=== PATIENT | female | born 1970 | race Caucasian/White ===

== ENCOUNTER 2018-03-31 10:22 | Emergency (ER) | payer OTHER ==
--- OUTSIDE RECORDS SUMMARY | 2018-03-31 10:25 | XMS REPORT | Clinical Summary ---
:1970 Author Organization [facility] Address [address] [place] [address] Care Team Providers Name Role Phone Sina Matthew MD Primary Care Provider Allergies Active Allergy Reactions Severity Noted Date Comments No Known Drug Allergies 12/13/2015 Current Medications Prescription Sig. Disp. Refills Start End Date Status Date oxyCODone-acetaminophen Take 1 tablet Active (PERCOCET) 10-325 mg by mouth 4 per tablet (four) times a day. tiZANidine (ZANAFLEX) 4 Take 1 tablet Active MG tablet by mouth 4 (four) times a day. gabapentin (NEURONTIN) Take 300 mg by Active 300 mg capsule mouth 3 (three) times a day. predniSONE (DELTASONE) Take 1 tablet Active 5 mg tablet by mouth daily. predniSONE (DELTASONE) Take 1 mg by Active 1 mg tablet mouth daily. hydroxychloroquine Take 200 mg by Active (PLAQUENIL) 200 mg mouth 2 (two) tablet times a day. fentaNYL (DURAGESIC) 50 1 patch. Active mcg/hr albuterol (PROAIR Inhale 2 puffs Active HFA,PROVENTIL every 6 (six) HFA,VENTOLIN HFA) 90 hours as mcg/actuation inhaler needed for wheezing. SUMAtriptan (IMITREX) Take 1 tablet Active 25 MG tablet by mouth as needed. fluocinonide (LIDEX) Apply Active 0.05 % cream topically 2 (two) times a day. escitalopram (LEXAPRO) Take 20 mg by Active 20 MG tablet mouth daily. pantoprazole (PROTONIX) Take 1 tablet Active 40 MG EC tablet by mouth daily. amitriptyline (ELAVIL) Take 2 tablets Active 100 MG tablet by mouth nightly - one time. citalopram (CeleXA) 40 Take 1 tablet Active MG tablet by mouth daily. esomeprazole (NexIUM) Take 20 mg by Active 20 MG capsule mouth daily before breakfast. folic acid (FOLVITE) 1 Take 1 mg by Active MG tablet mouth daily. clonAZEPAM (KlonoPIN) 1 Take 1 tablet Active MG tablet by mouth daily. fluticasone-salmeterol Inhale 1 puff Active (ADVAIR) 250-50 2 (two) times mcg/dose DISKUS a day. mycophenolate Take 1,000 mg Active (CELLCEPT) 500 mg by mouth tablet daily. SYNTHROID 125 mcg Take 1 tab by 90 tablet 3 Active tabletIndications: mouth daily 8 Papillary thyroid carcinoma SYNTHROID 125 mcg Take 1 tablet 96 tablet 3 10/07/19 Discontinued tabletIndications: (125 mcg 7 18 Malignant neoplasm of total) by thyroid gland mouth daily. Take 1 tab Mon - Sat Take 2 tabs Sun SYNTHROID 125 mcg Take 1 tablet 34 tablet 0 10/10/19 Discontinued tabletIndications: (125 mcg 8 18 Papillary thyroid total) by carcinoma mouth daily. Take 1 tab Mon - Sat Take 2 tabs Sun Active Problems Problem Noted Date Papillary thyroid carcinoma 10/09/2016 Last Assessment & Plan: Ann has no evidence of residual thyroid cancer. This is based on a negative neck exam, and negative neck ultrasound, and an undetectable serum thyroglobulin. She was advised to call before her next visit if she develop any lumps pain or swelling in her neck. Her next surveillance visit will be in 1 year. All of her questions were answered. Postoperative hypothyroidism 10/09/2016 Last Assessment & Plan: Ann is clinically and biochemically euthyroid. She currently takes Synthroid 125 mcg tablets 8 pills each week. She has no symptoms of hyperthyroidism at this time. Because of the lack of evidence of thyroid cancer, I recommend that she reduce to 125 mcg/day. I will give her 1 years worth of refills. I have asked her to call in the meantime should she develop any palpitations tremor or excessive sweating. Encounters Date Type Specialty Care Team Description 10/09/2017 Office Visit Endocrinology Sina Matthew Papillary thyroid carcinoma (Primary Dx); MD David Postoperative hypothyroidism 10/06/2017 Orders Only Endocrinology Jason Yusuf, Papillary thyroid carcinoma (Primary Dx); SOFI Love Malignant neoplasm of thyroid gland 09/29/2017 Hospital Encounter Radiology Sina Matthew MD carcinoma 09/17/2017 Orders Only Endocrinology Jaosn Yusuf, Papillary thyroid SOFI Love carcinoma (Primary Dx) 08/28/2017 Orders Only Endocrinology Jason Yusuf Papillary thyroid SOFI Love carcinoma (Primary Dx) after 03/30/2017 Family History Medical History Relation Name Comments Graves' disease Brother Other Father abestosis, mesothelioma Relation Name Status Comments Brother Father Social History Tobacco Use Types Packs/Day Years Used Date Former Smoker Quit: 09/11/2016 Smokeless Tobacco: Never Used Alcohol Use Drinks/Week oz/Week Comments No Sex Assigned at Date Recorded Not on file Last Filed Vital Signs Vital Sign Reading Time Taken Blood Pressure 115/80 10/09/2017 10:08 AM CDT Pulse 82 10/09/2017 10:08 AM CDT Temperature 36.7 C (98.1 F) 10/09/2017 10:08 AM CDT Respiratory Rate - - Oxygen Saturation 100% 10/09/2017 10:08 AM CDT Inhaled Oxygen Concentration - - Weight 76.2 kg (168 lb) 10/09/2017 10:08 AM CDT Height 160 cm (5' 3") 10/09/2017 10:08 AM CDT Body Mass Index 29.76 10/09/2017 10:08 AM CDT Plan of Treatment Date Type Specialty Care Team Description 10/08/2018 Office Visit Endocrinology Sina Matthew MD [address] [address] [place] [address] Health Maintenance Due Date Last Done Comments CERVICAL CANCER SCREENING 1989 INFLUENZA VACCINE 02/11/2018 BREAST CANCER SCREENING 2018 COLON CANCER SCREENING 2018 SHINGRIX VACCINE (#1) 2018 Procedures Procedure Name Priority Date/Time Associated Comments Diagnosis US SOFT TISSUE HEAD Routine 09/29/2017 2:15 Papillary thyroid Results for this NECK PM CDT carcinoma procedure are in the results section. THYROGLOBULIN BY JONATHAN Routine 09/17/2017 11:33 Results for this (NOT ORDERABLE) AM ELECTRONICS 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 THYROGLOBULIN ANTIBODY Routine 09/17/2017 11:33 Papillary thyroid Results for this AND THYROGLOBULIN, WIL AM ELECTRONICS ENGINEER carcinoma procedure are in OR JONATHAN the results section. THYROID STIMULATING Routine 09/17/2017 11:33 Papillary thyroid Results for this HORMONE AM ELECTRONICS ENGINEER carcinoma procedure are in the results section. T4, FREE Routine 09/17/2017 11:33 Papillary thyroid Results for this AM ELECTRONICS ENGINEER carcinoma procedure are in the results section. after 03/30/2017 Results US Soft Tissue Head Neck (09/29/2017 2:15 PM) Narrative Performed At EXAMINATION:[facility] CLINICAL HISTORY:C73 Malignant neoplasm of thyroid gland COMPARISON: October 04, 2016 ultrasound of the neck TECHNIQUE:Grayscale, color Doppler, and spectral waveform analysis if necessary was performed. IMPRESSION: Patient is status-post thyroidectomy. No residual thyroid tissue is identified. No mass, lymphadenopathy, or fluid collection identified in the anterior neck soft tissues. Thank you for allowing us to participate in the care of your patient. [facility]-[id number] Procedure Note Hm Interface, Radiology Results Incoming - 09/29/2017 2:53 PM CDT EXAMINATION: US SOFT TISSUE HEAD NECK CLINICAL HISTORY: C73 Malignant neoplasm of thyroid gland COMPARISON: October 04, 2016 ultrasound of the neck TECHNIQUE: Grayscale, color Doppler, and spectral waveform analysis if necessary was performed. IMPRESSION: Patient is status-post thyroidectomy. No residual thyroid tissue is identified. No mass, lymphadenopathy, or fluid collection identified in the anterior neck soft tissues. Thank you for allowing us to participate in the care of your patient. [facility]-[id number] Performing Organization Address City/[facility] Phone Number [facility] [address] [place] [address] Thyroglobulin by JONATHAN (09/17/2017 11:33 AM) Thyroglobulin <2.0 ng/mL [facility] 02 Comment: Reference Range: Pubertal Children and Adults: <40 According to the National Academy of Clinical Biochemistry, the reference interval for Thyroglobulin (TG) should be related to euthyroid patients and not for patients who underwent thyroidectomy.TG reference intervals for these patients depend on the residual mass of the thyroid tissue left after surgery.Establishing a post-operative baseline is recommended.The assay quantitation limit is 2.0 ng/mL. Narrative Performed At Performed at:02 - [facility] [address] [place], [place] [id number] Health Club Manager: Pee Tracey MD, Phone:[phone] Performing Organization Address City/State/[facility] Phone Number [facility] 02 Thyroglobulin Antibody and Thyroglobulin, WIL or JONATHAN (09/17/2017 11:33 AM) Thyroglobulin Ab 1.6 (H)Comment: Thyroglobulin Antibody 0.0 - 0.9 IU/mL [facility] measured by Corbin Wood Methodology Specimen Blood Narrative Performed At Performed at:[address] [place] [address] [id number] Health Club Manager: Sandro Murray MD, Phone:[phone] Performing Organization Address [facility] Phone Number [facility] Thyroid stimulating hormone (09/17/2017 11:33 AM) TSH <0.006 (L) 0.450 - 4.500 uIU/mL [facility] Specimen Blood Narrative Performed At Performed at:[address] [place] [address] [id number] Health Club Manager: Sandro Murray MD, Phone:[phone] Performing Organization Address [facility] Phone Number [facility] T4, free (09/17/2017 11:33 AM) T4, free 1.41 0.82 - 1.77 ng/dL [facility] Specimen Blood Narrative Performed At Performed at:[address] [place] [address] [id number] Health Club Manager: Sandro Murray MD, Phone:[phone] Performing Organization Address [facility] Phone Number [facility] after 03/30/2017 Insurance Payer Benefit Plan / Group Subscriber ID Type Phone Address MEDICARE MEDICARE PART A AND B xxxxxxxxxx Medicare [place], [place] MEDICAID MEDICAID xxxxxxxxx Medicaid [phone] [place] [address]
[2018-03-31] MEDS ORDERED: LIDOCAINE 1% MPF 5 ML VIAL ONE (11:19)
--- NOTE | 2018-03-31 11:32 | EDPHYS ---
Physician Documentation [facility] Name: Ann Joaquin Age: 48 yrs Sex: Female : 1970 Arrival Date: 03/31/2018 Time: 10:23 Bed 7 Private MD: ALMA VILLAGOMEZ ED Physician Jaret Vaca HPI: 03/31 11:25 This 48 yrs old Female presents to ER via Ambulatory with complaints of jr8 Pelvic Problem. 11:25 The patient presents with an abscess of the pelvis, the patient presents with a swollen jr8 area of the pelvis. Description: The affected area is moderate sized, draining, erythematous, swollen, tense. Onset: The symptoms/episode began/occurred gradually, 2 day(s) ago. Possible cause(s): unknown. Associated signs and symptoms: The patient has no apparent associated signs or symptoms. Modifying factors: the symptoms are alleviated by nothing, the symptoms are aggravated by movement, walking, pressure, sitting, squeezing the lesion and expressing the contents, touching. Severity of symptoms: At their worst the symptoms were moderate, in the emergency department the symptoms have improved. The patient has not experienced similar symptoms in the past. The patient has not recently seen a physician. Stated that she noticed swollen area around her right labia that was getting worse. This morning work up in a pool of blood. 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 - Social history:: Smoking status: Patient/guardian denies using tobacco. - Ebola Screening: : No symptoms or risks identified at this time. ROS: 11:25 Eyes: Negative for injury, pain, redness, and discharge, ENT: Negative for injury, jr8 pain, and discharge, Neck: Negative for injury, pain, and swelling, Cardiovascular: Negative for chest pain, palpitations, and edema, Respiratory: Negative for shortness of breath, cough, wheezing, and pleuritic chest pain, Abdomen/GI: Negative for abdominal pain, nausea, vomiting, diarrhea, and constipation, Back: Negative for injury and pain, MS/Extremity: Negative for injury and deformity, Neuro: Negative for headache, weakness, numbness, tingling, and seizure. 11:25 Skin: Positive for abscess, cellulitis. Exam: 11:25 Cardiovascular: Regular rate and rhythm with a normal S1 and S2. No gallops, murmurs, jr8 or rubs. Normal PMI, no JVD. No pulse deficits. Respiratory: Lungs have equal breath sounds bilaterally, clear to auscultation and percussion. No rales, rhonchi or wheezes noted. No increased work of breathing, no retractions or nasal flaring. Abdomen/GI: Soft, non-tender, with normal bowel sounds. No distension or tympany. No guarding or rebound. No evidence of tenderness throughout. Back: No spinal tenderness. No costovertebral tenderness. Full range of motion. MS/ Extremity: Pulses equal, no cyanosis. Neurovascular intact. Full, normal range of motion. Neuro: Awake and alert, GCS 15, oriented to person, place, time, and situation. Cranial nerves II-XII grossly intact. Motor strength 5/5 in all extremities. Sensory grossly intact. Cerebellar exam normal. Normal gait. 11:25 Skin: abscess noted to right inferior aspect of labia near where buttocks starts. Erythema and induration extends from lower gluteal cleft into right external labia. Actively draining . Vital Signs: 10:32 BP 120 / 84; Pulse 90; Resp 18; Temp 97.4; Pulse Ox 100% ; Weight 72.57 kg; Height 5 sv ft. 3 in. (160.02 cm); Pain 6/10; 10:32 Body Mass Index 28.34 (72.57 kg, 160.02 cm) sv Procedures: 11:25 I \T\ D: Incision and drainage was performed for an abscess of the right external labia jr8 Prepped with Betadine, Anesthetized with 2 ml's 1% Lidocaine. Incised with #11 blade. Drained small amount purulent fluid. serosanguinous fluid. Loculations removed. Cultures obtained. Abscess cavity explored. Packed with sterile gauze, Dressing: sterile 4x4 gauze, the patient tolerated the procedure well. MDM: 10:36 Patient medically screened. jr8 11:30 Data reviewed: vital signs, nurses notes, lab test result(s), and as a result, I will jr8 discharge patient. Data interpreted: Pulse oximetry: on room air is 100 %. Interpretation: normal. Counseling: I had a detailed discussion with the patient and/or guardian regarding: the historical points, exam findings, and any diagnostic results supporting the discharge/admit diagnosis, lab results, the need for outpatient follow up, a family practitioner, to return to the emergency department if symptoms worsen or persist or if there are any questions or concerns that arise at home. 11:30 ED course: return precautions given including s/s of worsening infection. To f/u in 48 jr8 hours for packing removal and to see how abscess is doing. Patient good with this and will follow up or come back if worse . 03/31 11:29 Order name: Wound Culture ss Administered Medications: 11:54 Drug: Clindamycin 600 mg {Note: left ventrogluteal .} Route: IM; Site: Other; 11:55 Drug: Bactrim (160 mg-800 mg (DS) 1 tablet Route: PO; sg Disposition: 13:40 Co-signature as Attending Physician, Jaret Vaca MD. rn Disposition: 03/31/18 11:31 Discharged to Home. Impression: Cutaneous abscess of buttock. - Condition is Stable. - Discharge Instructions: Skin Abscess, Incision and Drainage. - Prescriptions for Clindamycin HCl 300 mg Oral Capsule - take 1 capsule by ORAL route every 6 hours for 10 days; 40 capsule. Bactrim DS 800- 160 mg Oral Tablet - take 1 tablet by ORAL route every 12 hours for 10 days; 20 tablet. - Medication Reconciliation Form, Thank You Letter, Antibiotic Education, Prescription Opioid Use form. - Follow up: Private Physician; When: 48 Hours; Reason: Recheck today's complaints, Continuance of care, Re-evaluation by your physician. - Problem is new. - Symptoms have improved. Signatures: Dispatcher MedHo Jyoti Elizabeth RN RN sv Gay, Steven, RN RN Jaret Vaca MD MD rn Roszak, Josh, PA PA jr8 Rupal Silva RN RN Corrections: (The following items were deleted from the chart) 12:02 11:31 03/31/2018 11:31 Discharged to Home. Impression: Cutaneous abscess of buttock. hb Condition is Stable. Forms are Medication Reconciliation Form, Thank You Letter, Antibiotic Education, Prescription Opioid Use. Follow up: Private Physician; When: 48 Hours; Reason: Recheck today's complaints, Continuance of care, Re-evaluation by your physician. Problem is new. Symptoms have improved. jr8
--- NOTE | 2018-03-31 11:32 | ER ---
Nurse's Notes [facility] Name: Ann Joaquin Age: 48 yrs Sex: Female : 1970 Arrival Date: 03/31/2018 Time: 10:23 Bed 7 Private MD: ALMA VILLAGOMEZ Diagnosis: Cutaneous abscess of buttock Presentation: 03/31 10:29 Presenting complaint: Patient states: vaginal bleeding since 0500. c/o RLQ pain and RLQ sv swelling. Transition of care: patient was not received from another setting of care. Onset of symptoms was March 31, 2018 at 05:00. Care prior to arrival: None. 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 - Social history:: Smoking status: Patient/guardian denies using tobacco. - Ebola Screening: : No symptoms or risks identified at this time. Vital Signs: 10:32 BP 120 / 84; Pulse 90; Resp 18; Temp 97.4; Pulse Ox 100% ; Weight 72.57 kg; Height 5 sv ft. 3 in. (160.02 cm); Pain 6/10; 10:32 Body Mass Index 28.34 (72.57 kg, 160.02 cm) sv ED Course: 10:23 Patient arrived in ED. sb2 10:24 ALMA VILLAGOMEZ is Private Physician. sb2 10:30 Triage completed. sv 10:32 Arm band placed on right wrist. sv 10:36 Javy Kasper PA is PHCP. jr8 10:36 Jaret Vaca MD is Attending Physician. jr8 11:40 Rupal Silva, SOFI is Primary Nurse. hb Administered Medications: 11:54 Drug: Clindamycin 600 mg {Note: left ventrogluteal .} Route: IM; Site: Other; sg 11:55 Drug: Bactrim (160 mg-800 mg (DS) 1 tablet Route: PO; sg Outcome: 11:31 Discharge ordered by MD. mason 12:00 Discharged to home ambulatory, with family. 12:00 Condition: good 12:00 Discharge instructions given to patient, Instructed on discharge instructions, follow up and referral plans. medication usage, safety practices, wound care, Demonstrated understanding of instructions, follow-up care, medications, wound care, Prescriptions given X 2. 12:02 Patient left the ED. hb Signatures: Jyoti Landeros RN RN Monty Hernandez RN RN Javy Kasper PA PA jr8 Rupal Silva RN RN Rupinder Cordero sb2 Corrections: (The following items were deleted from the chart) 10:31 10:29 Presenting complaint: Patient states: vaginal bleeding since 0500. c/o RLQ pain. [facility]
[2018-03-31] MEDS ORDERED: SMZ./TMP. 800/160 MG TABLET ONE (11:51)
[2018-03-31] MEDS ORDERED: CLINDAMYCIN IV 150 MG/ML (4 mL) VIAL ONE (11:53)
[2018-03-31 12:17] VITALS: BP 120/84; TEMP 97.4; O2SAT 100
== END 2018-03-31 12:02 | disposition home or self-care (01) ==
LOC: ER 10:22
PROC: 0U9MXZZ Drainage of Vulva, External Approach (ICD-10-PCS; principal; 2018-03-31)
DX: N76.4 Abscess of vulva (principal); Z85.850 Personal history of malignant neoplasm of thyroid
CPT/HCPCS: 56405; 87070; 87205; 96372; 99283; S0077

== ENCOUNTER 2018-04-09 11:35 | Emergency (ER) | payer OTHER ==
--- OUTSIDE RECORDS SUMMARY | 2018-04-09 11:41 | XMS REPORT | Clinical Summary ---
:1970 Author Organization [facility] Address [address] [place] [address] Care Team Providers Name Role Phone Sina [...] Matthew MD carcinoma 09/17/2017 Orders Only Endocrinology Jason Yusuf, Papillary thyroid SOFI Love carcinoma (Primary Dx) 08/28/2017 Orders Only Endocrinology Jason Yusuf Papillary thyroid SOFI Love carcinoma (Primary Dx) after 04/08/2017 Family History Medical History Relation Name Comments [...] 10/08/2018 Office Visit Endocrinology Sina Matthew MD [address] [facility] [address] [place] [address] Health Maintenance Due Date Last Done [...] 11:33 Results for this (NOT ORDERABLE) AM GEOTHERMAL OPERATING 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 THYROGLOBULIN ANTIBODY Routine 09/17/2017 11:33 Papillary thyroid Results for this AND THYROGLOBULIN, WIL AM GEOTHERMAL OPERATING ENGINEER carcinoma procedure are in OR JONATHAN the results section. THYROID STIMULATING Routine 09/17/2017 11:33 Papillary thyroid Results for this HORMONE AM GEOTHERMAL OPERATING ENGINEER carcinoma procedure are in the results section. T4, FREE Routine 09/17/2017 11:33 Papillary thyroid Results for this AM GEOTHERMAL OPERATING ENGINEER carcinoma procedure are in the results section. after 04/08/2017 Results US Soft Tissue Head Neck (09/29/2017 2:15 PM) Narrative Performed At EXAMINATION:[facility] CLINICAL H[facility]ORY:C73 Malignant neoplasm of thyroid [...] participate in the care of your patient. [facility]-[id number] Procedure Note Hm Interface, Radiology Results Incoming [...] participate in the care of your patient. [facility]-[id number] Performing Organization Address City/[facility] Phone Number [facility] [address] [place] [address] Thyroglobulin by JONATHAN (09/17/2017 11:33 AM) Thyroglobulin [...] At Performed at:02 - [facility] [address] [place], [place] [id number] Title Vehicle Service Attendant: Pee Tracey MD, Phone:[phone] Performing Organization Address City/State/[facility] Phone Number [facility] 02 Thyroglobulin Antibody and Thyroglobulin, WIL or JONATHAN (09/17/2017 11:33 AM) Thyroglobulin Ab 1.6 (H)Comment: Thyroglobulin Antibody 0.0 - 0.9 IU/mL [facility] measured by Corbin [place] Methodology Specimen Blood Narrative Performed At Performed at:[address] [place] [id number] Title Vehicle Service Attendant: Sandro Murray MD, Phone:[phone] Performing Organization Address [facility] Phone Number [facility] Thyroid stimulating hormone (09/17/2017 11:33 AM) TSH <0.006 (L) 0.450 - 4.500 uIU/mL [facility] Specimen Blood Narrative Performed At Performed at:[address] [place] [address] [id number] Title Vehicle Service Attendant: Sandro Murray MD, Phone:[phone] Performing Organization Address [facility] Phone Number [facility] T4, free (09/17/2017 11:33 AM) T4, free 1.41 0.82 - 1.77 ng/dL [facility] Specimen Blood Narrative Performed At Performed at:[address] [place] [id number] Title Vehicle Service Attendant: Sandro Murray MD, Phone:[phone] Performing Organization Address [facility] Phone Number [facility] after 04/08/2017 Insurance Payer Benefit Plan / Group Subscriber ID Type Phone Address MEDICARE MEDICARE PART A AND B xxxxxxxxxx Medicare [place], [place] MEDICAID MEDICAID xxxxxxxxx Medicaid [phone] [place] [address]
[2018-04-09 12:15] LABS: Potassium 3.9 mmol/L (3.5-5.1)
[2018-04-09 12:17] LABS: Absolute Monocytes 0.4 K/uL (0.1-1.3); Absolute Neutrophil 4.4 K/uL (1.8-8.0); Basophils % 0.5 % (0-1.3); Eosinophils % 1.9 % (0-4.4); Hematocrit 34.3 % (36.0-45.0); Lymphocytes % 16.8 % (15.3-44.8); MCH 30.3 pg (27.0-35.0); MCV 90.5 fL (80-100); MPV 7.5 fL (7.6-11.3); Monocytes % 6.4 % (3.3-12.3)
[2018-04-09] MEDS ORDERED: ONDANSETRON 4 MG/2 ML VIAL ONE (12:27)
[2018-04-09] MEDS ORDERED: MORPHINE 4 MG/ML SYR ONE (12:27)
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
[2018-04-09 13:37] VITALS: BP 113/78; TEMP 98; O2SAT 98
--- NOTE | 2018-04-09 22:28 | EKG ---
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
== END 2018-04-09 13:26 | disposition home or self-care (01) ==
LOC: ER 11:35
DX: S39.012A Strain of muscle, fascia and tendon of lower back, initial encounter (principal); S16.1XXA Strain of muscle, fascia and tendon at neck level, initial encounter; S40.012A Contusion of left shoulder, initial encounter; V49.50XA Passenger injured in collision with unspecified motor vehicles in traffic accident, initial encounter
CPT/HCPCS: 36415; 70450; 70486; 71260; 72125; 73030; 74177; 76377; 80048; 85025; 86850; 86900; 86901; 93005; 96374; 96375; 99285; J2405; Q9967

== ENCOUNTER 2019-08-15 18:06 | Emergency (ER) | payer OTHER ==
--- OUTSIDE RECORDS SUMMARY | 2019-08-15 18:07 | XMS REPORT ---
:1970 [facility] Address [address] [place] [address] Dr. Kinsey [address] [place] [id number] Care Team Providers Name Role Phone Unavailable Unavailable Unavailable Problems This patient has no known problems. Allergies, Adverse Reactions, Alerts This patient has no known allergies or adverse reactions. Medications This patient has no known medications.
[2019-08-15] MEDS ORDERED: MORPHINE 4 MG/ML SYR ONE (18:35)
[2019-08-15] MEDS ORDERED: ONDANSETRON 4 MG/2 ML VIAL ONE (18:35)
[2019-08-15] MEDS ORDERED: NA CHLORIDE 0.9% 1,000 ML ONE (18:35)
[2019-08-15 18:49] LABS: Absolute Lymphocytes (CBC) 2.5 K/uL (0.7-4.9); Basophils % 0.3 % (0-1.3); Hematocrit 32.2 % (36.0-45.0); Lymphocytes % 16.9 % (15.3-44.8); MPV 8.4 fL (7.6-11.3)
[2019-08-15 19:12] LABS: Albumin 3.1 g/dL (3.4-5.0); Bilirubin Direct 0.1 mg/dL (0-0.2); Bilirubin Total 0.4 mg/dL (0.2-1.0); Potassium 3.2 mmol/L (3.5-5.1); Protein, Total 7.9 g/dL (6.4-8.2)
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
--- NOTE | 2019-08-15 19:57 | ER ---
Nurse's Notes [facility] Name: Ann Joaquin Age: 49 yrs Sex: Female : 1970 Arrival Date: 08/15/2019 Time: 18:09 Bed 13 Private MD: Diagnosis: Constipation;Colitis Presentation: 08/15 18:11 Presenting complaint: Patient states: "I take Percocet, so I started taking Movantic aj1 because Im getting constipated, I tried to go but it wasn't working and I don't know if I strained too hard but now my side is hurting and it hurts anytime that I move" Denies N/V/D. Denies fever. Denies urinary symptoms. Transition of care: patient was not received from another setting of care. Onset of symptoms was August 2019. Risk Assessment: Do you want to hurt yourself or someone else? Patient reports no desire to harm self or others. Initial Sepsis Screen: Does the patient meet any 2 criteria? HR > 90 bpm. No. Patient's initial sepsis screen is negative. Does the patient have a suspected source of infection? Yes: Acute abdominal pain. Care prior to arrival: None. 18:11 Method Of Arrival: Ambulatory aj1 18:11 Acuity: DIVYA 3 aj1 Triage Assessment: 18:17 General: Appears in no apparent distress. comfortable, Behavior is calm, cooperative, aj1 appropriate for age. Pain: Complains of pain in left femoral area and left inguinal area Pain currently is 6 out of 10 on a pain scale. Neuro: Level of Consciousness is awake, alert, obeys commands. Cardiovascular: Patient's skin is warm and dry. Respiratory: Airway is patent Respiratory effort is even, unlabored, Respiratory pattern is regular, symmetrical. GI: Reports lower abdominal pain. 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 aj1 Historical: - Allergies: 18:17 No Known Allergies; aj1 - Home Meds: 18:17 Advair Diskus 250-50 mcg/dose Inhl dsdv 1 puff 2 times per day [Active]; amitriptyline aj1 200 mg Oral tab 1 tab once daily [Active]; folic acid 1 mg Oral tab 1 tab once daily [Active]; gabapentin 300 mg Oral cap [Active]; Lexapro 20 mg Oral tab [Active]; Lidex Topical [Active]; oxycodone-acetaminophen 10-325 mg Oral tab 1 tab every 6 hours [Active]; pantoprazole 40 mg Oral TbEC 1 tab once daily [Active]; Plaquenil 200 mg Oral tab 2 tabs once daily [Active]; potassium citrate 10 mEq (1,080 mg) Oral TbER 2 tabs 3 times per day [Active]; prednisone 10 mg Oral tab once daily [Active]; ProAir HFA inhalation [Active]; Synthroid 125 mcg Oral tab 1 tab once daily [Active]; - PMHx: 18:17 Anxiety; back problems; Depression; kidney failure; Lupus; lymph cancer; raynaud's; aj1 Rheumatoid Arthritis; Sjogren's; THYROID CANCER; Thyroid problem; - Immunization history:: Flu vaccine is up to date. - Coronavirus screen:: The patient has NOT traveled to [place], [place], or [place] in the past 14 days. - Social history:: Smoking status: Patient reports the use of cigarette tobacco products, smokes one-half pack cigarettes per day. - Ebola Screening: : Patient denies travel to an Ebola-affected area in the 21 days before illness onset. Screenin:35 Abuse screen: Denies threats or abuse. Denies injuries from another. Nutritional sg screening: No deficits noted. Tuberculosis screening: No symptoms or risk factors identified. Never had TB. Fall Risk None identified. Assessment: 18:35 General: Appears in no apparent distress. uncomfortable, well groomed, well developed, sg well nourished, Behavior is calm, cooperative, appropriate for age. Pain: Complains of pain in right lower quadrant and left lower quadrant Quality of pain is described as aching. Neuro: Level of Consciousness is awake, alert, obeys commands, Oriented to person, place, time, Speech is normal, Facial symmetry appears normal. Cardiovascular: Patient's skin is warm and dry. Chest pain is denied. Respiratory: Airway is patent Respiratory effort is even, unlabored, Respiratory pattern is regular, symmetrical. GI: Abdomen is round non-distended, Bowel sounds present X 4 quads. Abd is soft X 4 quads Abdomen is tender to palpation in right lower quadrant and left lower quadrant. : No signs and/or symptoms were reported regarding the genitourinary system. EENT: No signs and/or symptoms were reported regarding the EENT system. Derm: Skin is pink, warm \\T\\ dry. Musculoskeletal: Circulation, motion, and sensation intact. Range of motion: intact in all extremities, Swelling absent. 19:06 Reassessment: Patient appears in no apparent distress at this time. Patient and/or jb4 family updated on plan of care and expected duration. Pain level reassessed. Patient is alert, oriented x 3, equal unlabored respirations, skin warm/dry/pink. Patient states feeling better. 19:50 Reassessment: PT reports and increase in pain, provider notified, see [facility] for orders. jb4 19:56 Reassessment: Patient appears in no apparent distress at this time. Patient and/or jb4 family updated on plan of care and expected duration. Pain level reassessed. Patient is alert, oriented x 3, equal unlabored respirations, skin warm/dry/pink. d/c pending completion of IV fluids. 20:53 Reassessment: Patient appears in no apparent distress at this time. Patient and/or jb4 family updated on plan of care and expected duration. Pain level reassessed. Patient is alert, oriented x 3, equal unlabored respirations, skin warm/dry/pink. 21:10 Reassessment: Patient appears in no apparent distress at this time. Patient and/or jb4 family updated on plan of care and expected duration. Pain level reassessed. Patient is alert, oriented x 3, equal unlabored respirations, skin warm/dry/pink. IV fluids finished, pt and significant other verbalized understanding of d/c and follow up instructions. Ambulated out of ED with steady gait. Vital Signs: 18:17 BP 103 / 74; Pulse 95; Resp 18; Temp 98.2; Pulse Ox 95% on R/A; Weight 74.84 kg (R); aj1 Height 5 ft. 3 in. (160.02 cm) (R); Pain 6/10; 19:09 BP 106 / 72; Pulse 85; Resp 16; Pulse Ox 100% on R/A; jb4 20:45 BP 106 / 70; Pulse 83; Resp 16; Pulse Ox 100% on R/A; jb4 18:17 Body Mass Index 29.23 (74.84 kg, 160.02 cm) aj ED Course: 18:09 Patient arrived in ED. mr 18:15 Triage completed. aj1 18:17 Arm band placed on Patient placed in an exam room. aj1 18:21 Kit Lind[facility] pm1 18:21 Yadiel Francois MD is Attending Physician. pm1 18:29 Monty Hernandez, RN is Primary Nurse. sg 18:35 Patient has correct armband on for positive identification. Bed in low position. Call sg light in reach. Pulse ox on. NIBP on. Warm blanket given. Head of bed elevated. 18:35 Initial lab(s) drawn, by me, sent to lab. Inserted saline lock: 22 gauge in right sg antecubital area, using aseptic technique. Blood collected. 18:44 Radiology exam delayed due to lab results not completed at this time. (BUN/Creatinine). bq 19:08 Ryan Nichols, RN is Primary Nurse. jb4 19:24 CT Abd/Pelvis - IV Contrast Only In Process Unspecified. EDMS 19:24 CT completed. Patient tolerated procedure well. Patient moved back from CT. mw3 21:10 No provider procedures requiring assistance completed. IV discontinued, intact, jb4 bleeding controlled, No redness/swelling at site. Pressure dressing applied. Administered Medications: 18:40 Drug: NS 0.9% 1000 ml Route: IV; Rate: 1000 ml; Site: right antecubital; sg 21:14 Follow up: Response: No adverse reaction; IV Status: Completed infusion jb4 18:40 Drug: morphine 4 mg Route: IVP; Site: right antecubital; sg 19:15 Follow up: Response: No adverse reaction; Pain is decreased; RASS: Alert and Calm (0) jb4 18:40 Drug: Zofran 4 mg Route: IVP; Site: right antecubital; sg 19:16 Follow up: Response: No adverse reaction; Nausea is decreased jb4 20:30 Drug: fentaNYL (PF) 25 mcg {Note: Rass score 0.} Route: IVP; Site: right antecubital; jb4 21:14 Follow up: Response: No adverse reaction; Pain is decreased; RASS: Alert and Calm (0) jb4 20:30 Drug: Cipro 500 mg Route: PO; jb4 21:13 Follow up: Response: No adverse reaction jb4 20:32 Drug: Flagyl 500 mg Volume: 100 ml; Route: IVPB; Rate: 200 ml/hr; Infused Over: 30 jb4 mins; Site: right antecubital; 21:10 Follow up: Response: No adverse reaction; IV Status: Completed infusion jb4 Outcome: 19:56 Discharge ordered by . pm1 21:10 Discharged to home ambulatory, with significant other. jb4 21:10 Condition: stable 21:10 Discharge instructions given to patient, significant other, Instructed on discharge instructions, follow up and referral plans. medication usage, Demonstrated understanding of instructions, follow-up care, medications, Prescriptions given X 3. 21:14 Patient left the ED. jb4 Signatures: Dispatcher [employer] EDMS Radha James RN RN aj1 Monty Hernandez RN RN sg Rivera, Mary mr Quilty, Betty bq Marinas, Patrick, JESI TETRYL BLENDER OPERATOR pm1 Ryan Nichols RN RN jb4 Katharina Robertson mw3
--- NOTE | 2019-08-15 19:57 | EDPHYS ---
Physician Documentation [facility] Name: Ann Joaquin Age: 49 yrs Sex: Female : 1970 Arrival Date: 08/15/2019 Time: 18:09 Bed 13 Private MD: Yadiel Cesar HPI: 08/15 18:26 This 49 yrs old Female presents to ER via Ambulatory with complaints of pm1 Abdominal Pain. 18:26 The patient presents with abdominal pain. Onset: The symptoms/episode began/occurred pm1 today. The symptoms do not radiate. Associated signs and symptoms: none. The symptoms are described as achy. Modifying factors: The symptoms are alleviated by nothing, the symptoms are aggravated by movement. Severity of pain: in the emergency department the pain is actually worse. The patient has not experienced similar symptoms in the past. Patient with abdominal pain and constipation yesterday and took Movantik around 1 PM. Was able to have a bowel movement by 10 PM and started having LLQ pain. Patient concerned that she might have strained too hard . 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 aj1 Historical: - Allergies: 18:17 No Known Allergies; aj1 - Home Meds: 18:17 Advair Diskus 250-50 mcg/dose Inhl dsdv 1 puff 2 times per day [Active]; amitriptyline aj1 200 mg Oral tab 1 tab once daily [Active]; folic acid 1 mg Oral tab 1 tab once daily [Active]; gabapentin 300 mg Oral cap [Active]; Lexapro 20 mg Oral tab [Active]; Lidex Topical [Active]; oxycodone-acetaminophen 10-325 mg Oral tab 1 tab every 6 hours [Active]; pantoprazole 40 mg Oral TbEC 1 tab once daily [Active]; Plaquenil 200 mg Oral tab 2 tabs once daily [Active]; potassium citrate 10 mEq (1,080 mg) Oral TbER 2 tabs 3 times per day [Active]; prednisone 10 mg Oral tab once daily [Active]; ProAir HFA inhalation [Active]; Synthroid 125 mcg Oral tab 1 tab once daily [Active]; - PMHx: 18:17 Anxiety; back problems; Depression; kidney failure; Lupus; lymph cancer; raynaud's; aj1 Rheumatoid Arthritis; Sjogren's; THYROID CANCER; Thyroid problem; - Immunization history:: Flu vaccine is up to date. - Coronavirus screen:: The patient has NOT traveled to [place], [place], or [place] in the past 14 days. - Social history:: Smoking status: Patient reports the use of cigarette tobacco products, smokes one-half pack cigarettes per day. - Ebola Screening: : Patient denies travel to an Ebola-affected area in the 21 days before illness onset. ROS: 18:26 Constitutional: Negative for fever, chills, and weight loss, Eyes: Negative for injury, pm1 pain, redness, and discharge, ENT: Negative for injury, pain, and discharge, Neck: Negative for injury, pain, and swelling, Cardiovascular: Negative for chest pain, palpitations, and edema, Respiratory: Negative for shortness of breath, cough, wheezing, and pleuritic chest pain. 18:26 Back: Negative for injury and pain, : Negative for injury, bleeding, discharge, and swelling, MS/Extremity: Negative for injury and deformity, Skin: Negative for injury, rash, and discoloration, Neuro: Negative for headache, weakness, numbness, tingling, and seizure. 18:26 Abdomen/GI: Positive for abdominal pain, constipation, of the left lower quadrant, Negative for nausea, vomiting, diarrhea. Exam: 18:26 Constitutional: This is a well developed, well nourished patient who is awake, alert, pm1 and in no acute distress. Head/Face: Normocephalic, atraumatic. Neck: Trachea midline, no thyromegaly or masses palpated, and no cervical lymphadenopathy. Supple, full range of motion without nuchal rigidity, or vertebral point tenderness. No Meningismus. Chest/axilla: Normal chest wall appearance and motion. Nontender with no deformity. No lesions are appreciated. Cardiovascular: Regular rate and rhythm with a normal S1 and S2. No gallops, murmurs, or rubs. Normal PMI, no JVD. No pulse deficits. Respiratory: Lungs have equal breath sounds bilaterally, clear to auscultation and percussion. No rales, rhonchi or wheezes noted. No increased work of breathing, no retractions or nasal flaring. 18:26 Back: No spinal tenderness. No costovertebral tenderness. Full range of motion. Skin: Warm, dry with normal turgor. Normal color with no rashes, no lesions, and no evidence of cellulitis. 18:26 Abdomen/GI: Inspection: abdomen appears normal, Bowel sounds: normal, Palpation: soft, in all quadrants, mild abdominal tenderness, in the left lower quadrant, mass, is not appreciated, rebound tenderness, is not appreciated. 18:26 Musculoskeletal/extremity: Extremities: all appear grossly normal, with no appreciated pain with palpation, ROM: intact in all extremities. Vital Signs: 18:17 BP 103 / 74; Pulse 95; Resp 18; Temp 98.2; Pulse Ox 95% on R/A; Weight 74.84 kg (R); aj1 Height 5 ft. 3 in. (160.02 cm) (R); Pain 6/10; 19:09 BP 106 / 72; Pulse 85; Resp 16; Pulse Ox 100% on R/A; jb4 20:45 BP 106 / 70; Pulse 83; Resp 16; Pulse Ox 100% on R/A; jb4 18:17 Body Mass Index 29.23 (74.84 kg, 160.02 cm) aj1 MDM: 18:21 Patient medically screened. pm1 19:55 Data reviewed: vital signs. Data interpreted: Pulse oximetry: on room air is 100 %. pm1 Interpretation: normal. Counseling: I had a detailed discussion with the patient and/or guardian regarding: the historical points, exam findings, and any diagnostic results supporting the discharge/admit diagnosis, lab results, radiology results, the need for outpatient follow up, to return to the emergency department if symptoms worsen or persist or if there are any questions or concerns that arise at home. 19:59 ED course: Patient is not taking zanaflex anymore. pm1 08/15 18:25 Order name: Basic Metabolic Panel; Complete Time: 19:40 pm1 08/15 18:25 Order name: CBC with Diff; Complete Time: 19:40 pm1 08/15 18:25 Order name: Creatinine for Radiology; Complete Time: 19:40 pm1 08/15 18:25 Order name: Hepatic Function; Complete Time: 19:40 pm1 08/15 18:25 Order name: Lipase; Complete Time: 19:40 pm1 08/15 18:25 Order name: CT Abd/Pelvis - IV Contrast Only; Complete Time: 19:42 pm1 08/15 18:25 Order name: IV Saline Lock; Complete Time: 18:46 pm1 08/15 18:25 Order name: Labs collected and sent; Complete Time: 18:46 pm1 Administered Medications: 18:40 Drug: NS 0.9% 1000 ml Route: IV; Rate: 1000 ml; Site: right antecubital; sg 21:14 Follow up: Response: No adverse reaction; IV Status: Completed infusion jb4 18:40 Drug: morphine 4 mg Route: IVP; Site: right antecubital; sg 19:15 Follow up: Response: No adverse reaction; Pain is decreased; RASS: Alert and Calm (0) jb4 18:40 Drug: Zofran 4 mg Route: IVP; Site: right antecubital; sg 19:16 Follow up: Response: No adverse reaction; Nausea is decreased jb4 20:30 Drug: fentaNYL (PF) 25 mcg {Note: Rass score 0.} Route: IVP; Site: right antecubital; jb4 21:14 Follow up: Response: No adverse reaction; Pain is decreased; RASS: Alert and Calm (0) jb4 20:30 Drug: Cipro 500 mg Route: PO; jb4 21:13 Follow up: Response: No adverse reaction jb4 20:32 Drug: Flagyl 500 mg Volume: 100 ml; Route: IVPB; Rate: 200 ml/hr; Infused Over: 30 jb4 mins; Site: right antecubital; 21:10 Follow up: Response: No adverse reaction; IV Status: Completed infusion jb4 Disposition: 08/16 07:37 Co-signature as Attending Physician, Yadiel Francois MD I agree with the assessment and radha plan of care. Disposition: 08/15/19 19:56 Discharged to Home. Impression: Colitis, Constipation. - Condition is Stable. - Discharge Instructions: Constipation, Adult. - Prescriptions for Flagyl 500 mg Oral Tablet - take 1 tablet by ORAL route every 8 hours for 10 days; 30 tablet. Lactulose 10 gram/15 mL Oral Solution - take 30 milliliter by ORAL route once daily; 300 milliliter. Cipro 500 mg Oral Tablet - take 1 tablet by ORAL route every 12 hours for 10 days; 20 tablet. - Medication Reconciliation Form, Thank You Letter, Antibiotic Education, Prescription Opioid Use form. - Follow up: Emergency Department; When: As needed; Reason: Worsening of condition. Follow up: Private Physician; When: 2 - 3 days; Reason: Recheck today's complaints, Continuance of care, Re-evaluation by your physician. - Problem is new. - Symptoms have improved. Signatures: Dispatcher [employer] EDRadha Perry, RN RN aj1 Monty Hernandez RN RN Yadiel Valencia MD MD cha Marinas, Patrick, IT SOLUTIONS SALES CONSULTANT [employer]IONS SALES CONSULTANT pm1 Ryan Nichols RN RN jb4 Corrections: (The following items were deleted from the chart) 08/15 21:14 19:56 08/15/2019 19:56 Discharged to Home. Impression: ColitisConstipation. Condition jb4 is Stable. Forms are Medication Reconciliation Form, Thank You Letter, Antibiotic Education, Prescription Opioid Use. Follow up: Emergency Department; When: As needed; Reason: Worsening of condition. Follow up: Private Physician; When: 2 - 3 days; Reason: Recheck today's complaints, Continuance of care, Re-evaluation by your physician. Problem is new. Symptoms have improved. pm1
[2019-08-15] MEDS ORDERED: CIPROFLOXACIN HCL 500 MG TAB ONE (20:09)
[2019-08-15] MEDS ORDERED: METRONIDAZOLE 500mg IVPB 500 MG/100 ML BAG IV ONE (20:10)
[2019-08-15] MEDS ORDERED: FENTANYL CITR 100 MCG/2 ML ONE (20:10)
[2019-08-15 21:28] VITALS: TEMP 98.2
[2019-08-15 21:29] VITALS: O2SAT 100
[2019-08-15 21:30] VITALS: BP 106/70
== END 2019-08-15 21:14 | disposition home or self-care (01) ==
LOC: ER 18:06
DX: K52.9 Noninfective gastroenteritis and colitis, unspecified (principal); K59.00 Constipation, unspecified; F17.210 Nicotine dependence, cigarettes, uncomplicated; N19 Unspecified kidney failure; Z85.72 Personal history of non-Hodgkin lymphomas; Z85.850 Personal history of malignant neoplasm of thyroid
CPT/HCPCS: 96365; 96361; 85025; 80048; 36415; 80076; 83690; 74177; 96375; 99284; Q9967; J3010; J7030; J2405

== ENCOUNTER 2021-10-21 12:59 | Emergency (ER) | payer OTHER ==
--- OUTSIDE RECORDS SUMMARY | 2021-10-21 13:03 | XMS REPORT | Continuity of Care Document ---
:1970 Author Organization [facility] t Address [address] [place] [address] [address] [place] [address] Care Team Providers Name Role Phone Irma LEVINE, A Primary Care Physician CHER MOCK Attending Clinician Unavailable Carolee Patrick MD Attending Clinician Stephany WILSON Attending Clinician Unavailable Stephany Wilson MD Attending Clinician Pob, Lab Main Attending Clinician Unavailable Shahida Andrea DO Attending Clinician Shahida ANDREA Attending Clinician Unavailable MAGALIS Attending Clinician Unavailable Payers Payer Name Policy Type Policy Number Effective Date Expiration Date S ource Problems Condition Condition Condition Status Onset Resolution Last Treating Co mments Source Name Details Category Date Date Treatment Clinician Date COPD COPD Disease Active Univers (chronic (chronic 2-25 ity of obstructiv [place]iv [place] 00 Medical pulmonary pulmonary Bran ch disease) disease) Gastroesop Gastroesop Disease Active U nivers hageal hageal - ity of reflux reflux 00:00: [place] disease, disease, 00 Medica l unspecifie unspecifie Br anch d whether d whether esophagiti esophagiti s present s present Neuropathi Neuropathi Disease Active U nivers c pain c pain - ity of 00:00: [place] [id number] Medical Branch Chronic Chronic Disease Active Univers insomnia insomnia 02-05 ity of 00:00: [place] [facility] Anxiety Anxiety Disease Active Univers and and 02-02 ity of depression depression [place] 00 [place] Gallbladde Gallbladde Disease Active U nivers r polyp r polyp 2-16 ity of 00:00: [place] [facility] Vitamin B6 Vitamin B6 Disease Active 2019-07 U nivers deficiency deficiency 2-29 it y of 00:00: [place] 00 Medical Branch Folate Folate Disease Active 2019-07 Univers deficiency deficiency 2-29 it y of 00:00: [place] [facility] 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 2-27 ity of and and 00:00: [place] Antismooth Antismooth 00 Me dical muscle muscle Branch antibodies antibodies positive positive Elevated Elevated Disease Active 2019-07 Unive rs alkaline alkaline 2-10 ity of phosphatas phosphatas 00:00[place] e level e level 00 Medical Branch History of History of Disease Active 2019-07 [facility] novel novel 2-07 ity of coronaviru coronaviru 00:[place] s s 00 Medical infection infection Bran ch (COVID-19) (COVID-19) Postsurgic Postsurgic Disease Active 2019-07 U nivers al al 2-07 ity of hypothyroi hypothyroi 00:00: [place] dism dism 00 Medical Branch Closed Closed Disease Active Univers fracture fracture 9-25 ity of of of 00:00: [place] proximal proximal 00 Medica l lateral lateral Branch malleolus malleolus of right of right fibula fibula with with routine routine healing healing CKD CKD Disease Active Univers (chronic (chronic 4-11 ity of kidney kidney 00:00: [place] disease), disease), 00 Medi hitesh stage III stage III Bran ch Long-term Long-term Disease Active Uni vers use of use of 4-11 ity of high-risk high-risk 00:[place] medication medication 00 Me dical Branch SLE SLE Disease Active Univers (systemic (systemic 4-13 ity of lupus lupus 00:00: [place] erythemato erythemato 00 Me dical sourav sourav Branch related related syndrome) syndrome) Raynaud's Raynaud's Disease Active Uni vers phenomenon phenomenon 4-13 it y of without without 00:00: [place] gangrene gangrene 00 Medica l Branch Sjogren's Sjogren's Disease Active Uni vers syndrome syndrome 4-13 ity of with other with other 00:00[place] organ organ 00 Medical involvemen involvemen Br anch t t Sjogren's Sjogren's Disease Active 2016-07 Uni vers syndrome syndrome 2-15 ity of with with 00:00: [place] tubulo-int tubulo-int 00 Me dical erstitial erstitial Bran ch nephropath nephropath 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) (current) 2-15 ity of use of use of 00:00: [place] systemic systemic 00 Medica l steroids steroids Branch SS-A SS-A Disease Active Univers antibody antibody 8-12 ity of positive positive 00:00: [place] 00 Medical Branch Long-term Long-term Disease Active Uni vers use of use of 8-12 ity of immunosupp immunosupp 00:00: [place] ressant ressant 00 Medical medication medication Br anch Renal Renal Disease Active Univers tubular tubular 4-29 ity of acidosis acidosis 00:00: [place] 00 Medical Branch Encounter Encounter Disease Active 2014-07 Uni vers for for 1-05 ity of long-term long-term 00:[place] (current) (current) 00 Medi hitesh use of use of Branch medication medication s s VIVI VIVI Disease Active 2014-07 Univers positive positive 1-05 ity of 00:00: [place] 00 Medical Branch Rheumatoid Rheumatoid Disease Active 2014-07 U nivers factor factor 1-05 ity of positive positive 00:00: [place] 00 Medical Branch Chronic, Chronic, Disease Active 2014-07 Unive rs continuous continuous 1-05 it y of use of use of 00:00: [place] opioids opioids 00 Medical Branch Chronic Chronic Disease Active 2014-07 Univers pain pain 1-05 ity of syndrome syndrome 00:00: [place] 00 Medical Branch Subacute Subacute Disease Active 2014-07 Unive rs cutaneous cutaneous 1-05 ity of lupus lupus 00:00: [place] erythemato erythemato 00 Me dical sourav sourav Branch Chronic Chronic Disease Active Univers steroid steroid 6-26 ity of use use 00:00: [place] 00 Medical Branch 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:00: [place] noma of noma of 00 Medical thyroid thyroid Branch Paraparesi Paraparesi Disease Active U nivers s s 6- ity of 00:00: [place] [facility] Myelopathy Myelopathy Disease Active U nivers -06 ity of 00:00: [place] [facility] 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 Uni vers thyroidect thyroidect 1-21 it y of joann joann 00:00: [place] 00 [facility] Allergies, Adverse Reactions, Alerts Allergy Allergy Status Severity Reaction(s) Onset Inactive Treating Comm ents Source Name Type Date Date Clinician TIZANIIVAN DRUG Active Other-Cmnt 2019-07 Univ ers NE INGREDI 2-04 ity of 00:00: [place] [facility] Tizanidi Propensi Active Other - See 2019-07 Seizures Univers ne ty to comments 204 ity of adverse 00:00: [place] reaction 00 Medical s [place] Social History Social Habit Start Date Stop Date Quantity Comments Source Exposure to Not sure [facility] SARS-CoV-2 (event) [facility] Alcohol intake 2021-09-07 2021-09-07 0 /d University of 00:00:00 00:00:00 [facility] Cigarettes smoked 2021-02-02 2021-02-02 Univers ity of current (pack per 00:00:00 00:00:00 ) - Reported [place] Cigarette 2021-02-02 2021-02-02 University of pack-years 00:00:00 00:00:00 [facility] Tobacco use and 2021-02-02 2021-02-02 Never used Universit y of exposure 00:00:00 00:00:00 [facility] History of tobacco 2016-09-21 Cigarette Smoker University of use 00:00:00 [facility] Sex [birth year] Universit y of 00:00:00 00:00:00 [facility] Smoking Status Start Date Stop Date Source Current every day smoker 2021-02-02 00:00:00 Uni versity of [facility] Medications Ordered Filled Start Stop Current Ordering Indication Dosage Frequency Signature Comments Components Source Medication Medication Date Date Medication? Clinician (SIG) Name Name mycophenola Yes [id number] 1000mg Take 2 Univers te mofetil 4-04 tablets by ity of 500 mg 00:00: mouth 2 [place] tablet 00 (two) Medical times Branch daily. albuterol Yes [id number] 2{puff} Inhale 2 Univers (PROVENTIL 3-04 Puffs ity of HFA) 90 00:00: every 6 [place] mcg/actuati 00 (six) Medical on inhaler hours as Branc h needed for Wheezing or Shortness of Breath. ergocalcife Yes [id number] Take 1 Univers rol, 3-03 capsule by ity of vitamin d2, 00:00: mouth once [place] 1,250 mcg 00 every Medical (50,000 month. Branch unit) Take with capsule food. Vit Yes [id number] 1mL Inject 1 Unive rs B1-B2-B3-B5 2-25 mL as ity of -B6 (B 00:00: directed [place] COMPLEX 00 once every Medica l 100) month. Branch 100-2-100-2 -2 mg/mL Soln escitalopra Yes [id number] 20mg Take 1 Univers m oxalate 2-25 tablet by ity o f 20 mg 00:00: mouth [place] tablet 00 daily. Medical Branch pantoprazol Yes [id number] 40mg Take 1 Univers e 40 mg EC 2-25 tablet by ity of tablet 00:00: mouth [place] 00 daily. Medical Branch amitriptyli Yes [id number] 200mg Take 2 Univers ne 100 mg 2-25 tablets by ity of tablet 00:00: mouth at [place] 00 bedtime. Medical Branch POTASSIUM Yes [id number] TAKE 2 Uni vers CITRATE 10 8-24 TABLETS IN ity of mEq (08 00:00: THE [place] mg) SR 00 MORNING, 2 Medical tablet TABLETS AT [place] NOON AND 3 TABLETS IN THE EVENING POTASSIUM Yes [id number] TAKE 2 Uni vers CITRATE 10 8-24 TABLETS IN ity of mEq ( 00:00: THE [place] mg) SR 00 MORNING, 2 Medical tablet TABLETS AT [place] NOON AND 3 TABLETS IN THE EVENING POTASSIUM Yes [id number] TAKE 2 Uni vers CITRATE 10 8-24 TABLETS IN ity of mEq ( 00:00: THE [place] mg) SR 00 MORNING, 2 Medical tablet TABLETS AT Branch NOON AND 3 TABLETS IN THE EVENING POTASSIUM Yes [id number] TAKE 2 Uni vers CITRATE 10 8-24 TABLETS IN ity of mEq (1,080 00:00: THE [place] mg) SR 00 MORNING, 2 Medical tablet TABLETS AT [place] NOON AND 3 TABLETS IN THE EVENING folic Yes [id number] 1{tbl} Take 1 Uni vers acid-vit 7-23 tablet by ity of B6-vit B12 00:00: mouth [place] 2.5-25-2 mg 00 daily. Medica l per tablet Branch amitriptyli Yes [id number] 200mg Take 2 Univers ne 100 mg 7-23 tablets by ity of tablet 00:00: mouth at [place] 00 bedtime. Medical Branch pantoprazol Yes [id number] 40mg Take 1 Univers e 40 mg EC 7-23 tablet by ity of tablet 00:00: mouth [place] 00 daily. Medical Branch SUMAtriptan Yes [id number] 0.6mg inj Univers 6 mg/0.5 mL 7-23 IM x 1 ity of injection 00:00: dose PRN [place] 00 migraine Medical headache; Branch Max 1 dose per 24 hours escitalopra Yes [id number] 20mg Take 1 Univers m oxalate 7-23 tablet by ity o f 20 mg 00:00: mouth [place] tablet 00 daily. Medical Branch folic Yes [id number] 1{tbl} Take 1 Uni vers acid-vit 7-23 tablet by ity of B6-vit B12 00:00: mouth [place] 2.5-25-2 mg 00 daily. Medica l per tablet Branch amitriptyli Yes [id number] 200mg Take 2 Univers ne 100 mg 7-23 tablets by ity of tablet 00:00: mouth at [place] 00 bedtime. Medical Branch pantoprazol Yes [id number] 40mg Take 1 Univers e 40 mg EC 7-23 tablet by ity of tablet 00:00: mouth [place] 00 daily. Medical Branch SUMAtriptan Yes [id number] 0.6mg inj Univers 6 mg/0.5 mL 7-23 IM x 1 ity of injection 00:00: dose PRN [place] 00 migraine Medical headache; Branch Max 1 dose per 24 hours escitalopra Yes [id number] 20mg Take 1 Univers m oxalate 7-23 tablet by ity o f 20 mg 00:00: mouth [place] tablet 00 daily. Medical Branch folic Yes [id number] 1{tbl} Take 1 Uni vers acid-vit 7-23 tablet by ity of B6-vit B12 00:00: mouth [place] 2.5-25-2 mg 00 daily. Medica l per tablet Branch amitriptyli Yes [id number] 200mg Take 2 Univers ne 100 mg 7-23 tablets by ity of tablet 00:00: mouth at [place] 00 bedtime. Medical Branch pantoprazol Yes [id number] 40mg Take 1 Univers e 40 mg EC 7-23 tablet by ity of tablet 00:00: mouth [place] 00 daily. Medical Branch SUMAtriptan Yes [id number] 0.6mg inj Univers 6 mg/0.5 mL 7-23 IM x 1 ity of injection 00:00: dose PRN [place] 00 migraine Medical headache; Branch Max 1 dose per 24 hours escitalopra Yes [id number] 20mg Take 1 Univers m oxalate 7-23 tablet by ity o f 20 mg 00:00: mouth [place] tablet 00 daily. Medical Branch SUMAtriptan Yes [id number] 0.6mg inj Univers 6 mg/0.5 mL 7-23 IM x 1 ity of injection 00:00: dose PRN [place] 00 migraine Medical headache; Branch Max 1 dose per 24 hours mycophenola Yes [id number] 1000mg Take 2 Univers te mofetil 7-07 tablets by ity of 500 mg 00:00: mouth 2 [place] tablet 00 (two) Medical times Branch daily. predniSONE Yes [id number] 5mg Take 5 [place] 1 mg tablet 7-07 tablets by it y of 00:00: mouth [place] 00 daily. Medical Branch mycophenola Yes [id number] 1000mg Take 2 Univers te mofetil 7-07 tablets by ity of 500 mg 00:00: mouth 2 [place] tablet 00 (two) Medical times Branch daily. predniSONE Yes [id number] 5mg Take 5 [place] 1 mg tablet 7-07 tablets by it y of 00:00: mouth [place] 00 daily. Medical Branch mycophenola Yes [id number] 1000mg Take 2 Univers te mofetil 7-07 tablets by ity of 500 mg 00:00: mouth 2 [place] tablet 00 (two) Medical times Branch daily. predniSONE Yes [id number] 5mg Take 5 [place] 1 mg tablet 7-07 tablets by it y of 00:00: mouth [place] 00 daily. Medical Branch predniSONE Yes [id number] 5mg Take 5 [place] 1 mg tablet 7-07 tablets by it y of 00:00: mouth [place] 00 daily. Medical Branch mycophenola 202- No [id number] 1000mg Take 2 Univers te mofetil 7-07 04-04 tablets by it y of 500 mg 00:00: 00:00 mouth 2 [place] tablet 00 :00 (two) Medical times [place] daily. gabapentin 2019-07 Yes 2 caps PO Un [place] 300 mg 2-04 qAM, 2 ity of capsule 14:57: qNOON, [address] gabapentin 2019-07 Yes 2 caps PO [place] 300 mg 2-04 qAM, 2 ity of capsule 14:57: qNOON, [address] gabapentin 2019-07 Yes 2 caps PO [place] 300 mg 2-04 qAM, 2 ity of capsule 14:57: qNOON, [address] gabapentin 2019-07 Yes 2 caps PO [place] 300 mg 2-04 qAM, 2 ity of capsule 14:57: qNOON, [address] oxyCODONE-a 2019-07 Yes 1{tbl} Take 1 [place] cetaminophe 2-04 tablet by ity of n 10-325 mg 14:46: mouth [place] per tablet 46 every 4 Medica l (four) Branch hours as needed. oxyCODONE-a 2019-07 Yes 1{tbl} Take 1 [place] cetaminophe 2-04 tablet by ity of n 10-325 mg 14:46: mouth [place] per tablet 46 every 4 Medica l (four) Branch hours as needed. oxyCODONE-a 2019-07 Yes 1{tbl} Take 1 [place] cetaminophe 2-04 tablet by ity of n 10-325 mg 14:46: mouth [place] per tablet 46 every 4 Medica l (four) Branch hours as needed. oxyCODONE-a 2020-1 Yes 1{tbl} Take 1 [place] cetaminophe 2-04 tablet by ity of n 10-325 mg 14:46: mouth [place] per tablet 46 every 4 Medica l (four) Branch hours as needed. ergocalcife 2020-1 Yes [id number] Take 1 Univers rol, 2-04 capsule by ity of vitamin d2, 00:00: mouth once [place] 1,250 mcg 00 every Medical (50,000 month. Branch unit) capsule ergocalcife 2020-1 Yes [id number] Take 1 Univers rol, 2-04 capsule by ity of vitamin d2, 00:00: mouth once [place] 1,250 mcg 00 every Medical (50,000 month. Branch unit) capsule ergocalcife 2020-1 Yes [id number] Take 1 Univers rol, 2-04 capsule by ity of vitamin d2, 00:00: mouth once [place] 1,250 mcg 00 every Medical (50,000 month. Branch unit) capsule orphenadrin 2020-1 Yes 1{tbl} Take 1 [place] e 100 mg SR 1-05 tablet by ity of tablet 00:00: mouth 2 (two) Medical times Branch daily. orphenadrin 2020-1 Yes 1{tbl} Take 1 [place] e 100 mg SR 1-05 tablet by ity of tablet 00:00: mouth 2 00 (two) Medical times Branch daily. orphenadrin 2020-1 Yes 1{tbl} Take 1 [place] e 100 mg SR 1-05 tablet by ity of tablet 00:00: mouth 2 00 (two) Medical times Branch daily. orphenadrin 2020-1 Yes 1{tbl} Take 1 [place] e 100 mg SR 1-05 tablet by ity of tablet 00:00: mouth 2 [place] 00 (two) Medical times Branch daily. fluocinonid 2020-0 Yes [id number] Apply to Univers e 0.05 % 4-22 area(s) 2 ity of cream 00:00: (two) [place] 00 times Medical daily. Branch triamcinolo 2020-0 Yes [id number] Apply to Univers ne 4-22 area(s) 2 ity of acetonide 00:00: (two) [place] 0.1 % cream 00 times Medical daily. Branch fluocinonid 2020-0 Yes [id number] Apply to Univers e 0.05 % 4-22 area(s) 2 ity of cream 00:00: (two) [place] 00 times Medical daily. Branch triamcinolo 2020-0 Yes [id number] Apply to Univers ne 4-22 area(s) 2 ity of acetonide 00:00: (two) [place] 0.1 % cream 00 times Medical daily. Branch fluocinonid 2020-0 Yes [id number] Apply to Univers e 0.05 % 4-22 area(s) 2 ity of cream 00:00: (two) [place] 00 times Medical daily. Branch triamcinolo 2020-0 Yes [id number] Apply to Univers ne 4-22 area(s) 2 ity of acetonide 00:00: (two) [place] 0.1 % cream 00 times Medical daily. Branch fluocinonid 2020-0 Yes [id number] Apply to Univers e 0.05 % 4-22 area(s) 2 ity of cream 00:00: (two) [place] 00 times Medical daily. Branch triamcinolo 2020-0 Yes [id number] Apply to Univers ne 4-22 area(s) 2 ity of acetonide 00:00: (two) [place] 0.1 % cream 00 times Medical daily. Branch hydroxychlo 2018-07 Yes 400mg Take 2 Uni vers roquine 0-02 tablets by ity of (PLAQUENIL) 00:00: mouth [place] 200 mg 00 daily. Medical tablet Branch hydroxychlo 2018-07 Yes 400mg Take 2 Uni vers roquine 0-02 tablets by ity of (PLAQUENIL) 00:00: mouth [place] 200 mg 00 daily. Medical tablet Branch hydroxychlo 2018-07 Yes 400mg Take 2 Uni vers roquine 0-02 tablets by ity of (PLAQUENIL) 00:00: mouth [place] 200 mg 00 daily. Medical tablet Branch hydroxychlo 2018-07 Yes 400mg Take 2 Uni vers roquine 0-02 tablets by ity of (PLAQUENIL) 00:00: mouth [place] 200 mg 00 daily. Medical tablet Branch foLIC acid Yes 1mg Take 1 mg [place] (FOLATE) 1 6-26 by mouth ity o f mg tablet 13:02: daily. [address] albuterol Yes 2{puff} Inhale 2 U nivers (PROVENTIL 6-26 Puffs. ity of HFA) 90 13:02[facility] foLIC acid Yes 1mg Take 1 mg [place] (FOLATE) 1 6-26 by mouth ity o f mg tablet 13:02: daily. [address] albuterol Yes 2{puff} Inhale 2 U nivers (PROVENTIL 6-26 Puffs. ity of HFA) 90 13:02: [place] [address] Medical on inhaler Branch foLIC acid Yes 1mg Take 1 mg [place] (FOLATE) 1 6-26 by mouth ity o f mg tablet 13:02: daily. [address] albuterol Yes 2{puff} Inhale 2 U nivers (PROVENTIL 6-26 Puffs. ity of HFA) 90 13:02: [place] [address] Medical on inhaler Branch foLIC acid Yes 1mg Take 1 mg [place] (FOLATE) 1 6-26 by mouth ity o f mg tablet 13:02: daily. [address] ADVAIR Yes 1{puff} Inhale 1 Univ ers DISKUS 5-14 Puff every ity of 250-50 00:00: 12 [place] mcg/dose 00 (twelve) Medical inhalation hours. Branch disk ADVAIR Yes 1{puff} Inhale 1 Univ ers DISKUS 5-14 Puff every ity of 250-50 00:00: 12 [place] mcg/dose 00 (twelve) Medical inhalation hours. Branch disk ADVAIR Yes 1{puff} Inhale 1 Univ ers DISKUS 5-14 Puff every ity of 250-50 00:00: 12 [place] mcg/dose 00 (twelve) Medical inhalation hours. Branch disk ADVAIR Yes 1{puff} Inhale 1 Univ ers DISKUS 5-14 Puff every ity of 250-50 00:00: 12 [place] mcg/dose 00 (twelve) Medical inhalation hours. Branch disk MOVANTIK 25 Yes every Unive rs mg Tab 4-25 morning. ity of 00:00: [place] 00 Medical Branch MOVANTIK 25 2019-0 Yes every Unive rs mg Tab 4-25 morning. ity of 00:00: 00 Medical Branch MOVANTIK 25 2018-0 Yes every Unive rs mg Tab 4-25 morning. ity of 00:00: 00 Medical Branch MOVANTIK 25 2018-0 Yes every Unive rs mg Tab 4-25 morning. ity of 00:00: [place] 00 Medical Branch valACYclovi 2017- Yes 1g Take 1 Univ ers r 1 gram 1-15 tablet by ity of tablet 00:00: mouth 2 (two) Medical times Branch daily. valACYclovi 2016-07 Yes 1g Take 1 Univ ers r 1 gram 1-15 tablet by ity of tablet 00:00: mouth 2 (two) Medical times Branch daily. valACYclovi 2016-07 Yes 1g Take 1 Univ ers r 1 gram 1-15 tablet by ity of tablet 00:00: mouth 2 (two) Medical times Branch daily. valACYclovi 2016-07 Yes 1g Take 1 Univ ers r 1 gram 1-15 tablet by ity of tablet 00:00: mouth 2 (two) Medical times Branch daily. FENTanyl 2016-0 Yes Univers (DURAGESIC) 7-26 ity of 50 mcg/hr 00:00: [place] patch 00 Medical Branch FENTanyl 2016-0 Yes Univers (DURAGESIC) 7-26 ity of 50 mcg/hr 00:00: [place] patch 00 Medical Branch FENTanyl 2016-0 Yes Univers (DURAGESIC) 7-26 ity of 50 mcg/hr 00:00: [place] patch 00 Medical Branch FENTanyl 2016-0 Yes Univers (DURAGESIC) 7-26 ity of 50 mcg/hr 00:00: [place] patch 00 Medical Branch SYNTHROID 2015-0 Yes 125ug Take 125 Uni vers 125 mcg 6-25 mcg by ity of tablet 00:00: mouth daily. Medical Branch SYNTHROID 2014-0 Yes 125ug Take 125 Uni vers 125 mcg 6-25 mcg by ity of tablet 00:00: mouth daily. Medical Branch SYNTHROID 2014-0 Yes 125ug Take 125 Uni vers 125 mcg 6-25 mcg by ity of tablet 00:00: mouth daily. Medical Branch SYNTHROID 2014-0 Yes 125ug Take 125 Uni vers 125 mcg 6-25 mcg by ity of tablet 00:00: mouth [place] 00 daily. Medical Branch Immunizations Ordered Filled Immunization Date Status Comments [facility] e Immunization Name Name Influenza Virus 2021-09-07 Completed Universit y of Vaccine Quad IM, 00:00:00 [facility] dical Preserv and ABX Branch Free 6 MO-64 YRS SARS-COV-2 COVID-19 2021-04-13 Completed Unive rsity of MODERNA VACCINE 00:00:00 [facility] [place] [facility] Branch SARS-COV-2 COVID-19 2021-04-13 Completed Unive rsity of MODERNA VACCINE 00:00:00 [facility] SARS-COV-2 COVID-19 2021-04-13 Completed Unive rsity of MODERNA VACCINE 00:00:00 [facility] SARS-COV-2 COVID-19 2021-04-13 Completed Unive rsity of MODERNA VACCINE 00:00:00 [facility] SARS-COV-2 COVID-19 2020-10-18 Completed Unive rsity of MODERNA VACCINE 00:00:00 [facility] SARS-COV-2 COVID-19 2020-10-18 Completed Unive rsity of MODERNA VACCINE 00:00:00 [facility] SARS-COV-2 COVID-19 2020-10-18 Completed Unive rsity of MODERNA VACCINE 00:00:00 [facility] SARS-COV-2 COVID-19 2020-10-18 Completed Unive rsity of MODERNA VACCINE 00:00:00 [facility] SARS-COV-2 COVID-19 2020-09-20 Completed Unive rsity of MODERNA VACCINE 00:00:00 [facility] SARS-COV-2 COVID-19 2020-09-20 Completed Unive rsity of MODERNA VACCINE 00:00:00 [facility] SARS-COV-2 COVID-19 2020-09-20 Completed Unive rsity of MODERNA VACCINE 00:00:00 [facility] SARS-COV-2 COVID-19 2020-09-20 Completed Unive rsity of MODERNA VACCINE 00:00:00 [facility] Influenza Virus 2020-05-16 Completed Universit y of Vaccine Recomb Quad 00:00:00 [place] [facility] IM, Preserv and ABX Branc h Free 18-64 YRS Influenza Virus 2020-05-16 Completed Universit y of Vaccine Recomb Quad 00:00:00 [place] [facility] IM, Preserv and ABX Branc h Free 18-64 YRS Influenza Virus 2020-05-16 Completed Universit y of Vaccine Recomb Quad 00:00:00 [place] [facility] IM, Preserv and ABX Branc h Free 18-64 YRS Influenza Virus 2020-05-16 Completed Universit y of Vaccine Recomb Quad 00:00:00 [place] [facility] IM, Preserv and ABX Branc h Free 18-64 YRS Zoster Vaccine 2019-07-27 Completed University of Recombinant 00:00:00 [facility] Pneumococcal 2019-07-27 Completed University o f Polysaccharide, 00:00:00 [facility] ical PPSV23 (PNEUMOVAX) [place] Zoster Vaccine 2019-07-27 Completed University of Recombinant 00:00:00 [facility] Pneumococcal 2019-07-27 Completed University o f Polysaccharide, 00:00:00 [facility] ical PPSV23 (PNEUMOVAX) Branch Zoster Vaccine 2019-07-27 Completed University of Recombinant 00:00:00 [facility] Pneumococcal 2019-07-27 Completed University o f Polysaccharide, 00:00:00 [facility] ical PPSV23 (PNEUMOVAX) [place] Zoster Vaccine 2019-07-27 Completed University of Recombinant 00:00:00 [facility] Pneumococcal 2019-07-27 Completed University o f Polysaccharide, 00:00:00 [facility] ical PPSV23 (PNEUMOVAX) Branch Zoster Vaccine 2019-02-23 Completed University of Recombinant 00:00:00 [facility] Pneumococcal 13 2019-02-23 Completed Universit y of Conjugate, PCV13 00:00:00 [facility] dical (Prevnar 13) Branch Zoster Vaccine 2019-02-23 Completed University of Recombinant 00:00:00 [facility] Pneumococcal 13 2019-02-23 Completed Universit y of Conjugate, PCV13 00:00:00 [place] Me dical (Prevnar 13) Branch Zoster Vaccine 2019-02-23 Completed University of Recombinant 00:00:00 [facility] Pneumococcal 13 2019-02-23 Completed Universit y of Conjugate, PCV13 00:00:00 [place] Me dical (Prevnar 13) Branch Zoster Vaccine 2019-02-23 Completed University of Recombinant 00:00:00 [facility] Pneumococcal 13 2019-02-23 Completed Universit y of Conjugate, PCV13 00:00:00 [place] [facility] [facility] (Prevnar 13) [place] Influenza Virus 2018-05-07 Completed Universit y of Vaccine 00:00:00 [facility] Influenza Virus 2018-05-07 Completed Universit y of Vaccine 00:00:00 [facility] Influenza Virus 2018-05-07 Completed Universit y of Vaccine 00:00:00 [facility] Influenza Virus 2018-05-07 Completed Universit y of Vaccine 00:00:00 [facility] TDAP 2017-04-16 Completed University of 00:00:00 [facility] Influenza Virus 2017-04-16 Completed Universit y of Vaccine Quad IM 3+ 00:00:00 [facility] TDAP 2017-04-16 Completed University of 00:00:00 [facility] Influenza Virus 2017-04-16 Completed [facility]it [facility] Vaccine Quad IM [facility] 00:[facility]00 [facility] Influenza Virus 2017-04-16 Completed Universit y of Vaccine Quad IM 3+ [facility] 00:00:00 [facility] Influenza Virus 2017-04-16 Completed Universit y of Vaccine Quad IM 3+ 00:00:00 [facility] Procedures This patient has no known procedures. Encounters Start End Encounter Admission Attending Care Care Encounter Source Date/Time Date/Time Type Type Clinicians Facility Department ID 2022-03-07 2022-03-07 Outpatient [facility] [id number] Univers 10:00:00 10:00:00 OMA [id number] ity of [facility] 2021-10-11 2021-10-11 [facility] [id number] Univers 00:00:00 00:00:00 Christiano Zarco MULTISPEC [id number] ity [facility] [id number] [facility] [id number] [facility] AND CIARRA [address] [place] [address] DIABETES CLINIC 2021-09-07 2021-09-07 Outpatient Kye WILSON [facility] [id number] Univers 13:45:00 14:14:09 WONDIFUL ity o f [facility] 2021-09-07 2021-09-07 Outpatient R IRMA [facility] [id number] [id number] Univers 13:00:00 13:00:00 WONDIFUL [id number] ity o f [facility] 2021-09-04 2021-09-04 [facility] [id number] Univers 00:00:00 00:00:00 Wondiful A HEALTH [id number] ity of [place] [id number] Michel as PROFESSIO [id number] Or dical NAL [address] [place] OFFICE [facility] 2021-08-23 2021-08-23 Methods Specialist Rodrigue, Adc Lab Main [facility] [id number] Univers 10:00:00 10:15:00 Visit Rhianna Andrea [id number] ity [id number] [id number] Or dical NAL 353 [facility] 2021-08-23 2021-08-23 Outpatient R ZULLY [facility] [id number] Univers 10:00:00 10:00:00 RHIANNA itjusto [facility] 2021-07-25 2021-07-25 Office [facility] [id number] Univers 13:30:00 13:43:36 Visit Christiano Zarco MULTISPEC [id number] [id number] [id number] [facility] AND LAFLEUR [address] [place] [address] DIABETES CLINIC 2020-10-25 2020-10-25 [facility] [id number] [place] 00:00:00 00:00:00 CHIVO [address] 2019-10-27 2019-10-27 [facility] [id number] [place] 00:00:00 00:00:00 CHIVO [address] Results This patient has no known results.
[2021-10-21] MEDS ORDERED: CYCLOBENZAPRINE 10 MG TAB ONE (14:33)
[2021-10-21] MEDS ORDERED: HYDROCODONE/APAP 5/325 MG TAB ONE (14:34)
[2021-10-21] MEDS ORDERED: LIDOCAINE 4% PATCH ONE (14:34)
--- NOTE | 2021-10-21 15:44 | RAD REPORT ---
EXAM DESCRIPTION: RAD - Lumbar Spine 3 Views - 10/21/2021 3:29 pm CLINICAL HISTORY: PAIN COMPARISON: Abdomen Pelvis W Contrast dated 08/15/2019 FINDINGS: Remote L1 compression fracture. Compared with 08/15/2019, new L2 and L3 compression fractu res are present, both have an approximately 30% loss of height. Neither of the L2 or L3 compression f ractures appears acute as there are new secondary degenerative changes which were not present in 2020 . IMPRESSION: L1 through L3 compression fracture. L1 is chronic. L2 and L3 are favored chronic. MRI co uld better establish acuity if clinically indicated.
--- NOTE | 2021-10-21 15:46 | RAD REPORT ---
EXAM DESCRIPTION: RAD - Thoracic Spine Ap/Lat - 10/21/2021 3:29 pm CLINICAL HISTORY: PAIN COMPARISON: Head C Spine Cap W Con dated 04/09/2018 FINDINGS: Upper and mid thoracic vertebral compression deformities this includes T4, T5, and T8. The se have less than 20% loss of height. No malalignment. No significant focal degenerative changes. Lum bar compression fractures is noted on the dedicated radiograph. IMPRESSION: Thoracic compression fractures which are probably chronic. MRI could better establish ac uity if clinically indicated
--- NOTE | 2021-10-21 16:10 | ER ---
Nurse's Notes [facility] Name: Ann Joaquin Age: 51 yrs Sex: Female : 1970 Arrival Date: 10/21/2021 Time: 13:00 Bed 12 Private MD: Diagnosis: Low back pain;Thoracic back pain;Fall on and from ladder, initial encounter-fall from stool Presentation: 10/21 13:05 Chief complaint: Patient states: Fell from step stool 8 days ago. Awoke the next day ll1 with mid and low back pain since. L arm bruising noted. Gait steady. Coronavirus screen: Vaccine status: Patient reports receiving the 2nd dose of the covid vaccine. Client denies travel out of the [place] in the last 14 days. At this time, the client does not indicate any symptoms associated with coronavirus-19. Ebola Screen: Patient denies travel to an Ebola-affected area in the 21 days before illness onset. Initial Sepsis Screen: Does the patient meet any 2 criteria? No. Patient's initial sepsis screen is negative. Does the patient have a suspected source of infection? No. Patient's initial sepsis screen is negative. Risk Assessment: Do you want to hurt yourself or someone else? Patient reports no desire to harm self or others. Onset of symptoms was October 13, 2021. 13:05 Method Of Arrival: Ambulatory ll1 13:05 Acuity: DIVYA 3 ll1 14:25 Care prior to arrival: None. Mechanism of Injury: Fall. Trauma event details: Injury ll1 occurred in the [facility]. Triage Assessment: 13:08 General: Appears uncomfortable, Behavior is cooperative, appropriate for age. ll1 13:08 Pain: Complains of pain in mid and low back Pain currently is 7 out of 10 on a pain ll1 scale. Quality of pain is described as aching. Musculoskeletal: Reports pain in back. Injury Description: Bruise. Trauma Activation: Not Applicable Physician: ED Physician; Name: ; Notified At: ; Arrived At: Physician: General Surgeon; Name: ; Notified At: ; Arrived At: Physician: Radiology; Name: ; Notified At: ; Arrived At: Physician: Respiratory; Name: ; Notified At: ; Arrived At: Physician: Lab; Name: ; Notified At: ; Arrived At: Historical: - Allergies: 13:07 No Known Drug Allergies; ll1 - PMHx: 13:07 Anxiety; Rheumatoid Arthritis; raynaud's; Sjogren's; lymph cancer; THYROID CANCER; ll1 Lupus; Thyroid problem; kidney failure; Depression; back problems; - PSHx: 13:07 B wrist SX; thyroid SX x 2; hysterectomy; ll1 - Immunization history:: Client reports receiving the 2nd dose of the Covid vaccine, Flu vaccine status is unknown. - Social history:: Smoking status: Patient reports the use of cigarette tobacco products, smokes one-half pack cigarettes per day. - Immunization history: Last tetanus immunization: - up to date. Screenin:24 Abuse screen: Denies threats or abuse. Nutritional screening: No deficits noted. ll1 Tuberculosis screening: No symptoms or risk factors identified. Fall Risk Fall in past 12 months (25 points). Total Brito Fall Scale indicates No Risk (0-24 pts). Primary Survey: 14:24 NO uncontrolled hemorrhage observed. A: Airway: patent. Breathing/Chest: Chest ll1 inspection: symmetrical rise and fall of the chest. Circulation: Skin color: pink. Disability Alert. Exposure/Environment: There is no evidence of uncontrolled external bleeding. 16:17 Reassessment Airway Airway Breathing/Chest Respiratory pattern Regular Respiratory ss effort Spontaneous Unlabored Disability Alert. Assessment: 14:15 Reassessment: No changes from previously documented assessment. Patient and/or family ll1 updated on plan of care and expected duration. Pain level reassessed. Patient is alert, oriented x 3, equal unlabored respirations, skin warm/dry/pink. Gait steady to triage for eval by STEEL FIXER. 16:16 Reassessment: Patient appears in no apparent distress at this time. Patient and/or ss family updated on plan of care and expected duration. Pain level reassessed. Patient is alert, oriented x 3, equal unlabored respirations, skin warm/dry/pink. Neuro: Level of Consciousness is awake, alert, Oriented to person, place, time, situation. Respiratory: Airway is patent Respiratory effort is even, unlabored, Respiratory pattern is regular, symmetrical. Vital Signs: 13:05 BP 121 / 86; Pulse 85; Resp 16; Temp 97.9; Pulse Ox 99% ; Weight 69.4 kg; Height 5 ft. ll1 3 in. (160.02 cm); Pain 10/10; 13:05 Body Mass Index 27.10 (69.40 kg, 160.02 cm) ll1 [place] Coma Score: 14:25 Eye Response: spontaneous(4). Verbal Response: oriented(5). Motor Response: obeys ll1 commands(6). Total: 15. Trauma Score (Adult): 14:25 Eye Response: spontaneous(1); Verbal Response: oriented(1); Motor Response: obeys ll1 commands(2); Systolic BP: > 89 mm Hg(4); Respiratory Rate: 10 to 29 per min(4); [place] Score: 15; Trauma Score: 12 ED Course: 13:00 Patient arrived in ED. ds1 13:07 Triage completed. ll1 13:09 Arm band placed on. ll1 14:15 Kit Lind NP is PHCP. pm1 14:15 Yadiel Francois MD is Attending Physician. pm1 14:25 Patient has correct armband on for positive identification. Bed in low position. Call ll1 light in reach. Side rails up X 1. Cardiac monitoring not applicable on this patient. 14:26 Patient maintains SpO2 saturation greater than 95% on room air. ll1 14:33 Patient placed in an exam room, on a stretcher. ll1 15:30 XRAY Lumbar Spine (3 Views) In Process Unspecified. EDMS 15:30 XRAY Thoracic Spine (Ap/lat) In Process Unspecified. EDMS 16:07 Merlene Weber, RN is Primary Nurse. ss 16:07 No provider procedures requiring assistance completed. Patient did not have IV access ss during this emergency room visit. Administered Medications: 14:32 Drug: [place] (HYDROcodone-acetaminophen) 5 mg-325 mg 1 tabs {Note: pain 7/10. Rass0.} ll1 Route: PO; 15:00 Follow up: Response: No adverse reaction; Pain is decreased ss 14:33 Drug: Flexeril (cyclobenzaprine) 10 mg Route: PO; ll1 15:00 Follow up: Response: No adverse reaction; Pain is decreased ss 14:33 Drug: Lidoderm Patch 5 % (700 mg/patch) 1 patches Route: Topical; Site: affected area; ll1 Intake: 16:17 PO: 0ml; Total: 0ml. ss Outcome: 16:10 Discharge ordered by . pm1 16:16 Discharged to home ambulatory, with family. ss 16:16 Discharge instructions given to patient, family, Instructed on discharge instructions, follow up and referral plans. medication usage, Demonstrated understanding of instructions, follow-up care. 16:17 Condition: stable ss 16:17 Patient's length of stay in the Emergency Department was greater than 2 hours. Patient's length of stay was extended due to staffing issues within the emergency department. 16:18 Patient left the ED. ss Signatures: Dispatcher [employer] [facility] Tanya Sevilla ds1 Merlene Weber, RN RN ss Kit Lind, JESI STEEL FIXER pm1 Marcy Bowen RN RN ll1 Corrections: (The following items were deleted from the chart) 14:21 14:20 Pain: Complains of pain in mid and low back Pain currently is 7 out of 10 on a ll1 pain scale. Quality of pain is described as aching, ll1 14:21 14:20 Musculoskeletal: Reports pain in back ll1 ll1 14:21 14:20 Injury Description: Bruise ll1 ll1
--- NOTE | 2021-10-21 16:11 | EDPHYS ---
Physician Documentation [facility] Name: Ann Joaquin Age: 51 yrs Sex: Female : 1970 Arrival Date: 10/21/2021 Time: 13:00 Bed 12 Private MD: ED Physician Yadiel Francois HPI: 10/21 14:28 This 51 yrs old Female presents to ER via Ambulatory with complaints of Fall Injury. pm1 14:28 Details of fall: The patient fell from a height, Stool. pm1 14:28 Onset: The symptoms/episode began/occurred 8 day(s) ago. Associated injuries: The pm1 patient sustained upper back injury, pain, injury to the low back, pain, left upper arm bruising. Severity of symptoms: in the emergency department the symptoms are unchanged. The patient has not experienced similar symptoms in the past. The patient has not recently seen a physician. Patient was standing on a stool and her sister opened the refrigerator door and it resulted in her falling from the stool. Patient landed on her left side. Patient with bruising to the left upper arm. No change in range of motion to left upper extremity. Patient is not concerned about left arm injury. She came in with complaints of mid and lower back pain. History of chronic back pain but is concerned for any acute injury. Historical: - Allergies: 13:07 No Known Drug Allergies; ll1 - PMHx: 13:07 Anxiety; Rheumatoid Arthritis; raynaud's; Sjogren's; lymph cancer; THYROID CANCER; ll1 Lupus; Thyroid problem; kidney failure; Depression; back problems; - PSHx: 13:07 B wrist SX; thyroid SX x 2; hysterectomy; ll1 - Immunization history:: Client reports receiving the 2nd dose of the Covid vaccine, Flu vaccine status is unknown. - Social history:: Smoking status: Patient reports the use of cigarette tobacco products, smokes one-half pack cigarettes per day. - Immunization history: Last tetanus immunization: - up to date. ROS: 14:29 Constitutional: Negative for fever, chills, and weight loss, Cardiovascular: Negative pm1 for chest pain, palpitations, and edema, Respiratory: Negative for shortness of breath, cough, wheezing, and pleuritic chest pain, Abdomen/GI: Negative for abdominal pain, nausea, vomiting, diarrhea, and constipation. 14:29 MS/Extremity: Negative for injury and deformity, Skin: Negative for injury, rash, and discoloration, Neuro: Negative for headache, weakness, numbness, tingling, and seizure. 14:29 Back: Positive for of the thoracic area and lumbar area, pain. 14:29 All other systems are negative. 14:29 MS/extremity: Positive for contusion, of the left upper arm. pm1 Exam: 14:29 Constitutional: This is a well developed, well nourished patient who is awake, alert, pm1 and in no acute distress. Head/Face: Normocephalic, atraumatic. 14:29 Skin: Warm, dry with normal turgor. Normal color with no rashes, no lesions, and no evidence of cellulitis. MS/ Extremity: Pulses equal, no cyanosis. Neurovascular intact. Full, normal range of motion. 14:29 Cardiovascular: Exam negative for acute changes, Rate: normal, Rhythm: regular, Pulses: no pulse deficits are appreciated. 14:29 Respiratory: Exam negative for acute changes, respiratory distress, shortness of breath. 14:29 Abdomen/GI: Exam negative for acute changes, Inspection: abdomen appears normal, Palpation: abdomen is soft and non-tender. 14:29 Back: pain, that is mild, of the thoracic area and lumbar area, muscle spasm, is appreciated in the left mid back. 14:29 Neuro: Exam negative for acute changes, Orientation: is normal, Mentation: is normal, Motor: is normal, moves all fours, Sensation: is normal, no obvious gross deficits. Vital Signs: 13:05 BP 121 / 86; Pulse 85; Resp 16; Temp 97.9; Pulse Ox 99% ; Weight 69.4 kg; Height 5 ft. ll1 3 in. (160.02 cm); Pain 10/10; 13:05 Body Mass Index 27.10 (69.40 kg, 160.02 cm) ll1 [place] Coma Score: 14:25 Eye Response: spontaneous(4). Verbal Response: oriented(5). Motor Response: obeys ll1 commands(6). Total: 15. Trauma Score (Adult): 14:25 Eye Response: spontaneous(1); Verbal Response: oriented(1); Motor Response: obeys ll1 commands(2); Systolic BP: > 89 mm Hg(4); Respiratory Rate: 10 to 29 per min(4); [place] Score: 15; Trauma Score: 12 MDM: 14:43 Patient medically screened. [facility] 16:08 Data reviewed: vital signs. Data interpreted: Pulse oximetry: on room air is 99 %. pm1 Interpretation: normal. Counseling: I had a detailed discussion with the patient and/or guardian regarding: the historical points, exam findings, and any diagnostic results supporting the discharge/admit diagnosis, radiology results, the need for outpatient follow up, to return to the emergency department if symptoms worsen or persist or if there are any questions or concerns that arise at home. 10/21 14:28 Order name: XRAY Lumbar Spine (3 Views); Complete Time: 16:02 pm1 10/21 14:28 Order name: XRAY Thoracic Spine (Ap/lat); Complete Time: 16:02 pm1 Administered Medications: 14:32 Drug: [place] (HYDROcodone-acetaminophen) 5 mg-325 mg 1 tabs {Note: pain 01/20. Rass0.} ll1 Route: PO; 15:00 Follow up: Response: No adverse reaction; Pain is decreased ss 14:33 Drug: Flexeril (cyclobenzaprine) 10 mg Route: PO; ll1 15:00 Follow up: Response: No adverse reaction; Pain is decreased ss 14:33 Drug: Lidoderm Patch 5 % (700 mg/patch) 1 patches Route: Topical; Site: affected area; ll1 Disposition Summary: 10/21/21 16:10 Discharge Ordered Location: Home pm1 Problem: new pm1 Symptoms: have improved pm1 Condition: Stable pm1 Diagnosis - Low back pain pm1 - Thoracic back pain pm1 - Fall on and from ladder, initial encounter - fall from stool pm1 Followup: pm1 - With: Emergency Department - When: As needed - Reason: Worsening of condition Followup: pm1 - With: Private Physician - When: 2 - 3 days - Reason: Recheck today's complaints, Continuance of care, Re-evaluation by your physician Discharge Instructions: - Discharge Summary Sheet pm1 - Chronic Back Pain pm1 - Fall Prevention in the Home, Adult pm1 Forms: - Medication Reconciliation Form pm1 - Thank You Letter pm1 - Antibiotic Education pm1 - Prescription Opioid Use pm1 Addendum: 10/25/2021 18:35 Co-signature as Attending Physician, Yadiel Francois MD I agree with the assessment and c arguello plan of care. Signatures: Dispatcher [employer] Yadiel Strauss MD MD cha Marinas, Patrick, CLOTH BLEACHING RANGE BACK TENDER CLOTH BLEACHING RANGE BACK TENDER pm1 Marcy Bowen RN RN ll1 Merlene Weber RN ss
[2021-10-21 16:26] VITALS: BP 121/86; TEMP 97.9; O2SAT 99
== END 2021-10-21 16:18 | disposition home or self-care (01) ==
LOC: ER 12:59
DX: M54.50 Low back pain, unspecified (principal); M54.6 Pain in thoracic spine; S40.022A Contusion of left upper arm, initial encounter; W17.89XA Other fall from one level to another, initial encounter; F17.210 Nicotine dependence, cigarettes, uncomplicated; N19 Unspecified kidney failure; Z85.850 Personal history of malignant neoplasm of thyroid
CPT/HCPCS: 72070; 72100; 99284